=== PATIENT | female | born 1955 | race Caucasian/White ===

== ENCOUNTER 2024-06-06 11:12 | Inpatient (IN) | payer MEDICARE, SELFPAY ==
[2024-06-06] VITALS (13 sets, daily range): BP systolic 96–156; BP diastolic 61–93; PULSE 66–96; RESP 15–18; TEMP 36.4–36.9; O2SAT 90–98; BMI 22.4; BMI 23.3
[2024-06-06 12:45] LABS: Basophils # 0.1 10^3/uL (0.0-0.1); Basophils % 0.3 %; Eosinophils % 0.2 %; Hematocrit 46.6 % (36-47); Lymphocytes # 1.2 10^3/uL (0.8-4.8); Lymphocytes % 6.5 %; Mean Corpuscular Hemoglobin 30.7 pg (27-33); Mean Platelet Volume 10.6 fL (7.4-10.4); Monocytes # 1.5 10^3/uL (0.2-0.9); Neutrophils % 84.4 %; Nucleated Red Blood Cells % 0 %; Platelet Count 249 10^3/cmm (157-399); Red Blood Count 5.01 10^6/uL (3.85-5.65); Red Cell Distribution Width 12.2 % (12.1-15.1)
--- NOTE | 2024-06-06 12:45 | ED_ITS ---
HPI - Abdominal Pain 2 General: Chief Complaint: Abdominal Pain Stated Complaint: abd pain Time Seen by Provider: 06/06/24 12:35 History of Present Illness: Patient presents to the ER with migrating abdominal pain. It started in right lower quadrant and then proceeded to move into different quadrants. Patient is having some nausea vomiting but no diarrhea, no fever chills, patient still has her appendix. Patient was on the bed sleeping upon my arrival to the exam room. Patient is worried about her appendix. No known sick contacts. Patient does not have chronic abdominal pain. There is no problems with urinating or defecating. Related Data Allergies Allergy/AdvReac Type Severity Reaction Status Date / Time No Known Allergies Allergy Verified 06/06/24 11:44 Review of Systems 2 General: Reports: 10 or more systems reviewed and unremarkable except in HPI and below Physical Exam 2 Const: COMMON NORMALS: no acute distress, average body habitus, patient oriented x3, no limitations, healthy appearing, alert and well nourished HENMT: COMMON NORMALS: normocephalic, atraumatic, hearing grossly normal bilaterally, external ears normal, Normal external nose present and moist oral mucous membranes HEAD & SCALP: normocephalic and atraumatic NOSE: Normal external nose present EXTERNAL EAR: Yes external ears normal Neck/C-Spine: COMMON NORMALS: no JVD Chest: COMMONS NORMALS: normal inspection of the chest and normal palpation of entire chest wall Resp: COMMON NORMALS: normal respiratory effort, No retractions, No use of accessory muscles and clear to auscultation bilaterally AUSCULTATION: clear to auscultation bilaterally Cardio: COMMON NORMALS: no JVD, regular rate, regular rhythm, S1 normal heart sound present, S2 normal heart sound present, No gallops present (Cardio), No clicks present (Cardio), No murmurs present (Cardio) and No rub (Cardio) R ATE: regular rate RHYTHM: regular rhythm HEART SOUNDS: S1 normal heart sound present and S2 normal heart sound present GI: COMMON NORMALS: Normal to inspection, nondistended, normoactive bowel sounds present, Soft to palpation, non-tender, No hepatosplenomegaly present and no masses PALPATION: Yes Soft to palpation and Yes No hepatosplenomegaly present Neuro: COMMON NORMALS: patient oriented x3 SENSORIUM/ORIENTATION: Yes alert Course 2 Vital Signs: Vital signs: Vital Signs Temperature 97.6 F 06/06/24 11:40 Pulse Rate 76 06/06/24 11:40 Respiratory Rate 18 06/06/24 11:40 Blood Pressure 144/81 06/06/24 11:40 Pulse Oximetry 98 06/06/24 11:40 Oxygen Delivery Me thod Room Air 06/06/24 11:40 MDM - Abdominal Pain Medical Decision Making Patient is 18,000 white count and some hematuria otherwise lab work is unremarkable, abdomen x-ray is unremarkable, abdomen pelvis noncontrast CT renal stone protocol showed perforated appendix with early phlegmon changes, Dr. Chapin was consulted who agreed to come and see the patient take her to the OR. Medical Records I reviewed the patient's medical records. Lab Data I reviewed the patient's lab results. 06/06/24 12:34 06/06/24 12:34 Labs/Radiology: Radiology Impressions Abdomen X-Ray 06/06/24 12:45 IMPRESSION: No acute findings. Nonspecific. Abdomen/Pelvis CT 06/06/24 13:30 IMPRESSION: 1. The appendix is dilated measuring 1.6 centimeters, there is an appendicolith which measures a proximally 0.9 centimeters, there is a locule of extraluminal air and surrounding inflammatory changes, and early phlegmon changes in the right lower quadrant. Findings consistent with acute complicated perforated appendicitis. 2. Bilateral adnexal lesions with the right measuring 4.8 x 4.2 centimeters and the left measuring 6.8 x 4.1 centimeters. Consider nonemergent MRI of the pelvis with and without contrast for further evaluation THIS REPORT CONTAINS FINDINGS THAT MAY BE CRITICAL TO PATIENT CARE. The findings (impression findings) were verbally communicated via telephone conference with Ronna Baez at 2:36 PM [facility] on 06/06/2024. The findings were acknowledged and understood. Laboratory Results WBC 18.70 10^3/uL (3.29-11.43) H 06/06/24 12:34 RBC 5.01 10^6/uL (3.85-5.65) 06/06/24 12:34 Hgb 15.40 g/dL (11.27-16.99) 06/06/24 12:34 Hct 46.6 % (36-47) 06/06/24 12:34 MCV 93.0 fl (85-98) 06/06/24 12:34 MCH 30.7 pg (27-33) 06/06/24 12:34 MCHC 33.0 g/dL (30-55) 06/06/24 12:34 RDW 12.2 % (12.1-15.1) 06/06/24 12:34 Plt Count 249 10^3/cmm (157-399) 06/06/24 12:34 MPV 10.6 fL (7.4-10.4) H 06/06/24 12:34 Neut % (Auto) 84.4 % 06/06/24 12:34 Lymph % (Auto) 6.5 % 06/06/24 12:34 [place] % (Auto) 8.0 % 06/06/24 12:34 Eos % (Auto) 0.2 % 06/06/24 12:34 Baso % (Auto) 0.3 % 06/06/24 12:34 Neut # (Auto) 15.80 10^3/uL (1.8-7.7) H 06/06/24 12:34 Lymph # (Auto) 1.2 10^3/uL (0.8-4.8) 06/06/24 12:34 [place] # (Auto) 1.5 10^3/uL (0.2-0.9) H 06/06/24 12:34 Eos # (Auto) 0.0 10^3/uL (0.0-0.8) 06/06/24 12:34 Baso # (Auto) 0.1 10^3/uL (0.0-0.1) 06/06/24 12:34 Nucleated RBC % (auto) 0 % 06/06/24 12:34 Nucleated RBCs # 0.0 /100WBC 06/06/24 12:34 Sodium 136 mmol/L (136-145) 06/06/24 12:34 Potassium 4.0 mmol/L (3.5-5.1) 06/06/24 12:34 Chloride 98 mmol/L (98-107) 06/06/24 12:34 Carbon Dioxide 26 mmol/L (22-29) 06/06/24 12:34 Anion Gap 16.0 (5-19) 06/06/24 12:34 BUN 8 mg/dL (8-23) 06/06/24 12:34 Creatinine 0.6 mg/dL (0.5-0.9) 06/06/24 12:34 GFR Calculation 99.7 mL/min (90-130) 06/06/24 12:34 Glucose 136 mg/dL (65-115) H 06/06/24 12:34 Calculated Osmolality 282 mOsm/kg (285-295) L 06/06/24 12:34 Calcium 9.2 mg/dL (8.5-10.5) 06/06/24 12:34 Total Bilirubin 0.8 mg/dL (0.15-1.2) 06/06/24 12:34 AST 10 U/L (0-32) 06/06/24 12:34 ALT 9 U/L (0-33) 06/06/24 12:34 Alkaline Phosphatase 109 U/L (35-105) H 06/06/24 12:34 Total Protein 6.9 g/dL (6.6-8.7) 06/06/24 12:34 Albumin 4.5 g/dL (3.5-5.2) 06/06/24 12:34 Globulin 2.4 g/dL (1.3-4.6) 06/06/24 12:34 Lipase 11 U/L (13-60) L 06/06/24 12:34 Urine Color [place] (Yellow) A 06/06/24 12:48 Urine Appearance Clear (CLEAR) 06/06/24 12:48 Urine pH 6.5 (5-7) 06/06/24 12:48 Ur Specific [place] 1.021 (1.005-1.030) 06/06/24 12:48 Urine Protein Trace (Negative) A 06/06/24 12:48 Urine Glucose (UA) Negative (Normal) 06/06/24 12:48 Urine Ketones 2+ (Negative) H 06/06/24 12:48 Urine Blood Trace (Negative) A 06/06/24 12:48 Urine Nitrate Negative (Negative) 06/06/24 12:48 Urine Bilirubin Negative (Negative) 06/06/24 12:48 Urine Urobilinogen 1.0 mg/dL (Negative) 06/06/24 12:48 Ur Leukocyte Esterase Trace (Negative) A 06/06/24 12:48 Urine RBC 11-20 /hpf (0-2) H 06/06/24 12:48 Urine WBC 0-5 /hpf (0-5) 06/06/24 12:48 Ur Squamous Epith Cells 6-10 /hpf (0-5) 06/06/24 12:48 Amorphous Sediment Not Reportable 06/06/24 12:48 Urine Bacteria Trace /hpf (NONE) 06/06/24 12:48 Hyaline Casts 1.65 /lpf 06/06/24 12:48 All radiology interpretation(s) finalized by discharge Discharge Plan Discharge Clinical Impression: Rupture of appendix Condition: Stable Coding Level of Care Code ED Swimming Pool Plasterer Helper for Rodney Shah
--- NOTE | 2024-06-06 12:45 | XRR_ITS ---
PROCEDURE INFORMATION: Exam: XR Abdomen Exam date and time: 06/06/2024 12:51 PM Age: 68 years old Clinical indication: Abdominal pain; Patient HX: PT C/O rlq pain since yesterday, PT states pain is more generalized now. PT reports n/v, denies diarrhea. PT states she still has her appendix. ; Additional info: Abdominal pain, nausea vomiting TECHNIQUE: Imaging protocol: Radiologic exam of the abdomen. Views: Frontal supine view of the abdomen. 1 View. COMPARISON: No relevant prior studies available. FINDINGS: Gastrointestinal tract: Nonspecific bowel gas pattern. Possible constipation. . No bowel dilation. Bones/joints: Unremarkable. XR/XR abdomen 1V* [id number] IMPRESSION: No acute findings. Nonspecific.
[2024-06-06 12:55] LABS: Lipase 11 U/L (13-60)
[2024-06-06 12:56] LABS: Bilirubin Urine Negative (Negative); Blood Urine Trace (Negative); Glucose Urine UA Negative (Normal); Ketones Urine 2+ (Negative); Leukocyte Esterase Urine Trace (Negative); Nitrate Urine Negative (Negative); Protein Urine Trace (Negative); Specific Gravity, Urine 1.021 (1.005-1.030); Urine Appearance Clear (CLEAR); pH Urine 6.5 (5-7)
[2024-06-06 13:00] LABS: Alanine Aminotransferase 9 U/L (0-33); Albumin Level 4.5 g/dL (3.5-5.2); Alkaline Phosphatase 109 U/L (35-105); Aspartate Amino Transferase 10 U/L (0-32); Blood Urea Nitrogen 8 mg/dL (8-23); Calcium 9.2 mg/dL (8.5-10.5); Carbon Dioxide 26 mmol/L (22-29); Chloride 98 mmol/L (98-107); Creatinine Clr Calc Pharmacy 63.2285; Globulin 2.4 g/dL (1.3-4.6); Glomerular Filtration Rate 99.7 mL/min (90-130); Glucose 136 mg/dL (65-115); Osmolality Calculated 282 mOsm/kg (285-295); Sodium 136 mmol/L (136-145); Total Bilirubin 0.8 mg/dL (0.15-1.2); Total Protein 6.9 g/dL (6.6-8.7)
[2024-06-06 13:01] LABS: Add Urine Microscopic? YES; Bacteria Urine Trace /hpf; Hyaline Casts Urine 1.65 /lpf; WBC Urine 0-5 /hpf (0-5)
[2024-06-06 13:12] LABS: Urine Color Orange (Yellow)
--- NOTE | 2024-06-06 13:30 | CTR_ITS ---
PROCEDURE INFORMATION: Exam: CT Abdomen And Pelvis Without Contrast Exam date and time: 06/06/2024 1:35 PM Age: 68 years old Clinical indication: Nausea and vomiting; Abdominal pain; Localized; Right lower quadrant (rlq); Additional info: Hematuria, abdominal pain, nausea vomiting TECHNIQUE: Imaging protocol: Computed tomography of the abdomen and pelvis without contrast. Radiation optimization: All CT scans at this facility use at least one of these dose optimization techniques: automated exposure control; mA and/or kV adjustment per patient size (includes targeted exams where dose is matched to clinical indication); or iterative reconstruction. COMPARISON: CR (ABDOMEN, ) 06/06/2024 12:51 PM RADIATION DOSE METRICS: Total DLP (mGy-cm): 379.4 FINDINGS: Diaphragm: Large hiatal hernia. Liver: Normal. No mass. Gallbladder and biliary ducts: Normal. No calcified stones. No ductal dilation. Pancreas: Normal. No ductal dilation. Spleen: The spleen demonstrates punctate calcifications, consistent with remote granulomatous organism exposure. Adrenal glands: Left adrenal nodular thickening Kidneys and ureters: Normal. No hydronephrosis. Stomach and bowel: Unremarkable. No obstruction. No mucosal thickening. Appendix: The appendix is dilated measuring 1.6 centimeters, there is an appendicolith which measures 0.9 centimeters, there is a locule of extraluminal air, surrounding inflammatory changes, and early phlegmon changes in the right lower quadrant. Intraperitoneal space: No free air. Developing phlegmon changes in the right lower quadrant. Vasculature: Unremarkable. No abdominal aortic aneurysm. Lymph nodes: No retroperitoneal or pelvic lymphadenopathy Urinary bladder: Unremarkable as visualized. Reproductive: Bilateral adnexal lesions with the right measuring 4.8 x 4.2 centimeters in the left measuring 6.8 x 4.1 centimeters. Bones/joints: Chronic compression osseous deformity of the superior endplate of T12 vertebral body. Decreased bone mineralization. Soft tissues: Unremarkable. CT/CT kidney stone [id number] IMPRESSION: 1. The appendix is dilated measuring 1.6 centimeters, there is an appendicolith which measures a proximally 0.9 centimeters, there is a locule of extraluminal air and surrounding inflammatory changes, and early phlegmon changes in the right lower quadrant. Findings consistent with acute complicated perforated appendicitis. 2. Bilateral adnexal lesions with the right measuring 4.8 x 4.2 centimeters and the left measuring 6.8 x 4.1 centimeters. Consider nonemergent MRI of the pelvis with and without contrast for further evaluation THIS REPORT CONTAINS FINDINGS THAT MAY BE CRITICAL TO PATIENT CARE. The findings (impression findings) were verbally communicated via telephone conference with Ronna Baez at 2:36 PM CONTRACT TECHNICIAN on 06/06/2024. The findings were acknowledged and understood.
[2024-06-06] MEDS: ketorolac 60 mg/2 mL INJ IM (14:22)
[2024-06-06] MEDS: piperacillin-tazobactam 3.375 GM in sodium chloride 0.9% (plus) 50 ML IV ×2 (15:21→23:15)
--- NOTE | 2024-06-06 15:37 | P.ANESASSM_ITS ---
Pre-Anesthetic Assessment Height/Weight: Height 5 ft 5 in Weight 135 lb Temp Pulse Resp BP Pulse Ox O2 Del Method 97.6 F 76 18 144/81 98 Room Air 06/06/24 11:40 06/06/24 11:40 06/06/24 11:40 06/06/24 11:40 06/06/24 11:40 06/06/24 11:40 Preop Diagnosis: Acute appendicitis Operation Date: 06/06/24 16:10 Proposed Procedures p Laparoscopic Appendectomy(Not Applicable) - Parag Simpson MD Was Beta Elina taken within 24 hours: N/A Was Clonidine taken within 24 hours: N/A Last intake: Patient has been drinking water all day. Last food intake was last night Social Tobacco and No alcohol Exam alert, oriented x 3, clear to auscultation bilaterally and regular rate & rhythm Airway Submandibular: within normal limits Cervical ROM: within normal limits Mallampati: Class I Dentition: other Comments: Comments: Edentulous Anesthetic Plan ASA status: 3E Anesthesia: General Other: Only prior anesthetic was when she was 13 years old and broken leg. No reported issues with anesthesia Patient had dinner last night but no solid food since that time. Has been drinking water all day. Reportedly had water in the ER. Given concern for ruptured appendix, will proceed Current smoker, emphysema on inhalers Patient states that she does run a little high on blood pressure. Preop BP 144/81. No antihypertensives Labs reviewed. WBC 18.7 METs greater than 4 Plan for GETA with RSI Medications/Allergies Allergies Allergy/AdvReac Type Severity Reaction Status Date / Time No Known Allergies Allergy Verified 06/06/24 11:44 Data Anesthesia 06/06/24 12:34 06/06/24 12:34 Short CBC 06/06/24 Range/Units 12:34 WBC 18.70 H (3.29-11.43) 10^3/uL Hgb 15.40 (11.27-16.99) g/dL Hct 46.6 (36-47) % MCV 93.0 (85-98) fl Plt Count 249 (157-399) 10^3/cmm Neut % (Auto) 84.4 % Neut # (Auto) 15.80 H (1.8-7.7) 10^3/uL BMP 06/06/24 12:34 Sodium 136 Potassium 4.0 Chloride 98 Carbon Dioxide 26 BUN 8 Creatinine 0.6 Glucose 136 H Calcium 9.2 Liver Function 06/06/24 Range/Units 12:34 Total Bilirubin 0.8 (0.15-1.2) mg/dL AST 10 (0-32) U/L ALT 9 (0-33) U/L Alkaline Phosphatase 109 H (35-105) U/L Albumin 4.5 (3.5-5.2) g/dL Urine 06/06/24 Range/Units 12:48 Urine Color [place] A (Yellow) Urine Appearance Clear (CLEAR) Urine pH 6.5 (5-7) Ur Specific [place] 1.021 (1.005-1.030) Urine Protein Trace A (Negative) Urine Glucose (UA) Negative (Normal) Urine Ketones 2+ H (Negative) Urine Nitrate Negative (Negative) Urine Bilirubin Negative (Negative) Ur Leukocyte Esterase Trace A (Negative) Urine RBC 11-20 H (0-2) /hpf Urine WBC 0-5 (0-5) /hpf Cardiac Studies: 2 No Data to Display
--- NOTE | 2024-06-06 15:39 | P.HP_ITS ---
Providers/Chief Complaint 2 Admitting Physician: Parag Simpson MD Chief Complaint: abd pain History of Present Illness Humera Keys is a 68 year old female who presents to the hospital for evaluation of abdominal pain, she has been having abdominal pain since yesterday night, some nausea and vomit. Denies any other significant symptoms. White count was elevated to [address] scan show evidence of perforated acute appendicitis. Review of Systems 2 General: Reports: 10 or more systems reviewed and unremarkable except in HPI and below Medications/Allergies Allergies Allergy/AdvReac Type Severity Reaction Status Date / Time No Known Allergies Allergy Verified 06/06/24 11:44 Vitals/I&O/Wt Last Vital Signs Temp 97.6 F 06/06/24 11:40 Pulse 76 06/06/24 11:40 Resp 18 06/06/24 11:40 BP 144/81 06/06/24 11:40 Pulse Ox 98 06/06/24 11:40 O2 Del Method Room Air 06/06/24 11:40 Weight last 48 hrs Weight 135 lb Physical Exam 2 GI: OTHER: Abdomen is soft, there is tenderness to the right lower quadrant with localized peritonitis at this level Data 06/06/24 12:34 06/06/24 12:34 A&P Assessment and plan (1) Acute appendicitis with peritonitis: (2) Rupture of appendix: Plan After complete history physical examination and review of all available clinical data the following is my assessment. Patient presents with rupture acute appendicitis with localized peritonitis, at this close the need for laparoscopic possible open appendectomy. After discussion of all risk and benefits as documented in my preop note patient has decided to proceed. I discussed the risks of bleeding, infection, abscess formation, injury to surrounding structures including blood vessels, colon, intestine, ureter, I have also explained that every surgery carries a small percentage of risk of . Patient shows understanding agrees to proceed. Attestations 2 Medical Necessity Statement*: Patient will require 3 to 5 days of hospital stay for antibiotic management after perforated acute appendicitis with peritonitis Coding Level of Care Code Acute Code for [facility] Diagnoses Acute appendicitis with peritonitis K35.33 Rupture of appendix K35.32
[2024-06-06] MEDS: lidocaine-epi 1% 20 mL INJ INJECTION (16:04)
[2024-06-06] MEDS: BUPivacaine 0.25% INJ 10 mL INJECTION (16:05)
--- NOTE | 2024-06-06 17:34 | P.OP_ITS ---
Operative Report Date of procedure: June 06, 2024 Pre-op diagnosis: Perforated acute appendicitis Post-op diagnosis: Same Post-op findings: There was significant adhesions of the omentum to the anterior abdominal wall starting in the infraumbilical location extending all the way down to the suprapubic region. The appendix was located in the right lower quadrant there was an early phlegmon formation with anterior abdominal wall and part of the omentum that was adhesed to the anterior abdominal wall. The perforation appeared to be contained in the mesoappendix. There was some purulent fluid in the periappendiceal bed Procedure done: Laparoscopic appendectomy, extensive lysis of additions Specimens removed/disposition: Appendix Surgeon: Parag Simpson MD Interlocking Tower Operator: AZAEL OR STaff Estimated blood loss: 10 Complications: none apparent Brief History: This is a 68-year-old female who presents to the hospital with abdominal pain, white count was [address] scan showed evidence of acute appendicitis with perforation. After discussion of all risks and benefits as documented in my preop note we decided to proceed to the OR for laparoscopic appendectomy. Procedure: Patient was brought into the OR, she was placed in the supine position. General anesthesia was given. The abdomen was prepped and draped in the usual sterile fashion. The abdomen was accessed via infraumbilical incision with an open technique, a 12 mm Thompson trocar was placed and fixed to the fascia with #0 Vicryl. Initial pneumoperitoneum was obtained and no evidence of visceral injury during entry was noted. Additional 5 mm trocars were placed in the left lower quadrant position and due to adhesions in the infraumbilical midline I decided to pull the second trocar in the right flank. Significant adhesions of the omentum to the anterior abdominal wall were noted starting in the infraumbilical location standing all the way down to the pelvis. This adhesions prevented visualization of the appendix and the cecum. I therefore decided to proceed with lysis of additions, approximately 45 minutes were needed to lyse adhesions from the omentum to the anterior abdominal wall and from what appeared to be the sigmoid colon to the anterior abdominal wall, once I was able to properly visualize the appendix I decided to not continue to additional adhesiolysis deeper in the pelvis as this could result in injury of the adjacent structures. Once the appendix was visualized in the right lower quadrant I then placed an extra 5 mm trocar in the left upper quadrant to allow me for better exposure and dissection of the appendix, I was able to dissect the appendix from the surrounding tissues using blunt dissection, a small amount of periappendiceal purulent fluid was noted, no overt stool contamination in the abdomen was appreciated at that time. I then took down the mesoappendix from the tip of the appendix to the base of the appendix using LigaSure, while doing this it was apparent that the perforation has been contained in the mesoappendix. No significant contamination was noted, the base of the appendix appeared to be healthy. I then proceeded to transect the appendix at the base using a 45 mm blue load Endo TERRANCE stapler. The appendix was retrieved via the umbilical trocar site in an Endo Catch bag. The staple line appeared healthy and hemostatic. I then proceeded to irrigate the periappendiceal bed and pelvis with about 1 L of saline. A 19 Sinhala drain was then placed in the pelvis and periappendiceal bed and delivered through the right flank trocar. The drain was fixed with #2-0 nylon. I then proceeded to close the umbilical trocar site using a Ivan-Marta suture passer under direct visualization with a 0 Vicryl. The left lower quadrant trocar was removed under direct visualization the left upper quadrant trocar was used to evacuate the pneumoperitoneum and subsequently removed. Local anesthesia was infiltrated in all the wounds, the wounds were closed in layers using #4 Monocryl for the skin and Dermabond was applied. At the end of the procedure all counts were correct, the patient tolerated well the procedure and was transferred to the PACU in stable condition.
[2024-06-06] MEDS: sodium chloride 0.9% 1,000 ML 75 ML IV (20:14)
--- NOTE | 2024-06-06 21:33 | PC.NURSE ---
Received report from PEG Winkler at 2000.
[2024-06-06] MEDS: HYDROmorphone 1 mg/mL INJ 1 mL 0.5 MG IVP (23:15)
[2024-06-07] VITALS (8 sets, daily range): BP systolic 96–114; BP diastolic 60–85; PULSE 62–82; RESP 16–18; TEMP 36.4–36.8; O2SAT 87–94
[2024-06-07 03:34] LABS: Basophils % 0.2 %; Hematocrit 40.5 % (36-47); Lymphocytes # 0.9 10^3/uL (0.8-4.8); Mean Corpuscular HGB Conc 32.1 g/dL (30-55); Mean Corpuscular Hemoglobin 30.6 pg (27-33); Mean Corpuscular Volume 95.3 fl (85-98); Mean Platelet Volume 10.8 fL (7.4-10.4); Monocytes # 0.7 10^3/uL (0.2-0.9); Monocytes % 3.8 %; Neutrophils # 16.26 10^3/uL (1.8-7.7); Neutrophils % 90.2 %; Nucleated Red Blood Cells % 0 %; Platelet Count 204 10^3/cmm (157-399); Red Blood Count 4.25 10^6/uL (3.85-5.65); Red Cell Distribution Width 12.4 % (12.1-15.1); White Blood Count 18.04 10^3/uL (3.29-11.43)
[2024-06-07 03:53] LABS: Anion Gap 14.5 (5-19); Blood Urea Nitrogen 15 mg/dL (8-23); Carbon Dioxide 24 mmol/L (22-29); Chloride 105 mmol/L (98-107); Creatinine Clr Calc Pharmacy 64.1864; Glomerular Filtration Rate 71.5 mL/min (90-130); Glucose 148 mg/dL (65-115); Osmolality Calculated 292 mOsm/kg (285-295); Potassium 4.5 mmol/L (3.5-5.1); Sodium 139 mmol/L (136-145)
[2024-06-07] MEDS: HYDROmorphone 1 mg/mL INJ 1 mL 0.5 MG IVP ×2 (05:51→14:54)
[2024-06-07] MEDS: ketorolac 30 mg/mL INJ 15 MG IVP ×3 (05:51→17:33)
[2024-06-07] MEDS: acetaminophen 325 mg Tablet 650 MG PO ×3 (08:16→17:34)
[2024-06-07] MEDS: piperacillin-tazobactam 3.375 GM in sodium chloride 0.9% (plus) 50 ML IV ×2 (08:32→16:28)
[2024-06-07] MEDS: sodium chloride 0.9% 1,000 ML 75 ML IV (09:54)
--- NOTE | 2024-06-07 09:54 | P.PN_ITS ---
Subjective 2 Subjective: Postoperative day 1 status post laparoscopic appendectomy for perforated acute appendicitis. Patient is doing okay no significant abdominal pain other than with movement which is expected after discussion of surgery. Tolerating liquid diet. Vital signs have been stable. Vitals/I&O/Wt Last Vital Signs Temp 98.1 F 06/07/24 08:02 Pulse 79 06/07/24 08:02 Resp 16 06/07/24 08:02 BP 111/64 06/07/24 08:02 Pulse Ox 91 06/07/24 08:02 O2 Del Method Nasal Cannula 06/07/24 08:02 O2 Flow Rate 2 06/07/24 04:00 06/06/24 06/07/24 06/07/24 22:59 06:59 14:59 Intake Total 50 / 50 110 / 160 1240 / 1240 Output Total 10 / 10 50 / 60 Balance 40 / 40 60 / 100 1240 / 1240 Weight last 48 hrs Weight 143 lb Weight 139 lb 14.4 oz Weight 135 lb Physical Exam 2 GI: OTHER: Abdominal examination is benign abdomen is soft is appropriately tender to palpation the LUCIANA drain is in place with serosanguineous output. Data 06/07/24 02:58 06/07/24 02:58 A&P Assessment and plan (1) Rupture of appendix: (2) Acute appendicitis with peritonitis: Plan Patient showing very good progression after laparoscopic appendectomy for perforated acute appendicitis. Vital signs and clinical status have significantly improved but the white count still elevated we will continue to monitor over the next 24 to 48 hours, patient will require 3 to 5 days of hospital stay for IV antibiotics due to the perforation and then we will plan on transition to the outpatient setting. Attestations 2 Medical Necessity Statement*: Patient required 2-3 more days of hospital stay for antibiotic management. Coding Level of Care Code Acute Code for [facility] Diagnoses Rupture of appendix K35.32 Acute appendicitis with peritonitis K35.33
[2024-06-08] VITALS (7 sets, daily range): BP systolic 130–156; BP diastolic 73–99; PULSE 62–80; RESP 16–18; TEMP 36.5–36.8; O2SAT 90–93
[2024-06-08] MEDS: ketorolac 30 mg/mL INJ 15 MG IVP ×4 (00:04→16:59)
[2024-06-08] MEDS: acetaminophen 325 mg Tablet 650 MG PO ×4 (00:05→17:00)
[2024-06-08] MEDS: piperacillin-tazobactam 3.375 GM in sodium chloride 0.9% (plus) 50 ML IV ×4 (00:05→23:50)
[2024-06-08 03:56] LABS: Basophils % 0.3 %; Eosinophils # 0.1 10^3/uL (0.0-0.8); Eosinophils % 1.1 %; Hematocrit 35.3 % (36-47); Lymphocytes # 2.3 10^3/uL (0.8-4.8); Mean Corpuscular Hemoglobin 30.8 pg (27-33); Mean Corpuscular Volume 96.2 fl (85-98); Mean Platelet Volume 11.2 fL (7.4-10.4); Monocytes % 8.8 %; Neutrophils # 8.05 10^3/uL (1.8-7.7); Neutrophils % 69.2 %; Nucleated Red Blood Cells % 0 %; Platelet Count 168 10^3/cmm (157-399); Red Blood Count 3.67 10^6/uL (3.85-5.65); Red Cell Distribution Width 12.8 % (12.1-15.1); White Blood Count 11.63 10^3/uL (3.29-11.43)
[2024-06-08 04:16] LABS: Anion Gap 13.4 (5-19); Blood Urea Nitrogen 12 mg/dL (8-23); Calcium 8.1 mg/dL (8.5-10.5); Carbon Dioxide 23 mmol/L (22-29); Chloride 107 mmol/L (98-107); Creatinine Clr Calc Pharmacy 64.7724; Glomerular Filtration Rate 99.7 mL/min (90-130); Glucose 97 mg/dL (65-115); Osmolality Calculated 290 mOsm/kg (285-295); Potassium 3.4 mmol/L (3.5-5.1); Sodium 140 mmol/L (136-145)
--- NOTE | 2024-06-08 07:13 | P.PN_ITS ---
Subjective 2 Subjective: Patient is postoperative day 2 status post laparoscopic appendectomy for perforated acute appendicitis. Patient is doing okay currently abdominal pain is controlled. Has been passing gas but has not had a bowel movement yet. No fever chills Vitals/I&O/Wt Last Vital Signs Temp 97.9 F 06/08/24 03:30 Pulse 73 06/08/24 03:30 Resp 17 06/08/24 03:30 BP 130/73 06/08/24 03:30 Pulse Ox 92 06/08/24 03:30 O2 Del Method Nasal Cannula 06/08/24 03:30 O2 Flow Rate 2 06/08/24 03:30 06/07/24 06/08/24 06/08/24 22:59 06:59 14:59 Intake Total 1290 / 3060 50 / 3110 Output Total 20 / 40 Balance 1270 / 3020 50 / 3070 Weight last 48 hrs Weight 142 lb 14.4 oz Weight 143 lb Weight 139 lb 14.4 oz Weight 135 lb Physical Exam 2 GI: OTHER: Abdomen is soft, appropriately tender, surgical incisions are covered with dressing, LUCIANA drain with serosanguineous output. Data 06/08/24 03:00 06/08/24 03:00 A&P Assessment and plan (1) Rupture of appendix: Plan Patient is doing well after laparoscopic appendectomy for perforated acute appendicitis. White count has trended down to 11.6 today. The plan is to transition to the outpatient setting in the next 48 hours. We will discontinue the drain previous to discharge. Patient will be advanced to regular diet today and I will add some medication for stool softeners. Attestations 2 Medical Necessity Statement*: Patient will require 48 hours of hospital stay for IV antibiotics. Coding Level of Care Code Acute Code for [facility] Diagnoses Rupture of appendix K35.32
[2024-06-08] MEDS: polyethylene glycol 3350 Pkt 17 gm PO ×2 (08:21→17:00)
--- NOTE | 2024-06-08 10:04 | PC.SOCIAL ---
IMM Update pg 2 of IMM updated and reviewed w/ patient. Patient signed. Copy provided and copy dated, initialed and placed in chart.
--- NOTE | 2024-06-08 10:17 | PC.CHAP ---
Pastoral Care Encounter/Spiritual Assessment Type of Contact [] Declined drywall hanger visit [] Patient/Family/Request visit [] Outpatient visit [] Follow-up visit [] Physician referral [] Code/Alert [x] Routine visit [] Staff referral [] Actively dying [] Patient sleeping [] Family support [] [] Out of room [] Palliative care [] [] Receiving care in room [] Pre-surgical visit [] Trauma [] Long length of stay [] ICU visit [] Other: Relational/Emotional Strength [] Patient feels connected with others/family/visitors/staff [] Distress [] Loneliness/isolation [] Abandonment Spirituality of Patient [x] Person of Carolyn [] Attends Temple of their Carolyn [x] Believes in Prayer [] Reads Bible or Yarsani materials [] There are Spiritual issues to be addressed [employer] Interventions [x] Prayer [x] Active listening [] Non-anxious presence [] Spiritual/emotional support [] Crisis/trauma care [] Spiritual counseling [] Bereavement support [] Provided bereavement packet [x] Provided Bible/devotional materials [] Provided toy/stuffed animal, coloring book to patient or family member [] Provided Communion [] Anointing/[place] [] Salvation [x] Completed spiritual assessment [] Other: Impact on Illness or Injury [] Angry [] Fearful [] Anxious [] Often cries [] Exhaustion [] Unable to work [] Unable to attend advent [] Unable to walk/stand [] Unable to read [] Unable to drive [] Unable to eat/drink [] Unable to sleep [] Unable to be with family [] Patient intubated [] Other: Summary Time spent with patient 5 min
[2024-06-08] MEDS: HYDROmorphone 1 mg/mL INJ 1 mL 0.5 MG IVP (22:52)
[2024-06-09] VITALS: BP 142/89; PULSE 56; RESP 18; TEMP 36.4; O2SAT 95
[2024-06-09 04:00] VITALS: BP 130/78; PULSE 63; RESP 17; TEMP 36.6; O2SAT 92
[2024-06-09 05:40] LABS: Basophils # 0.1 10^3/uL (0.0-0.1); Basophils % 0.7 %; Eosinophils # 0.3 10^3/uL (0.0-0.8); Eosinophils % 3.8 %; Hematocrit 37.6 % (36-47); Lymphocytes % 28.5 %; Mean Corpuscular Hemoglobin 31.1 pg (27-33); Mean Corpuscular Volume 94.2 fl (85-98); Mean Platelet Volume 10.7 fL (7.4-10.4); Monocytes # 0.7 10^3/uL (0.2-0.9); Monocytes % 9.8 %; Neutrophils # 3.99 10^3/uL (1.8-7.7); Neutrophils % 56.9 %; Nucleated Red Blood Cells % 0 %; Platelet Count 217 10^3/cmm (157-399); Red Blood Count 3.99 10^6/uL (3.85-5.65); Red Cell Distribution Width 12.4 % (12.1-15.1); White Blood Count 7.02 10^3/uL (3.29-11.43)
[2024-06-09] MEDS: acetaminophen 325 mg Tablet 650 MG PO ×2 (06:04→17:55)
[2024-06-09 06:15] LABS: Anion Gap 14.6 (5-19); Blood Urea Nitrogen 9 mg/dL (8-23); Calcium 8.3 mg/dL (8.5-10.5); Carbon Dioxide 25 mmol/L (22-29); Chloride 104 mmol/L (98-107); Creatinine Clr Calc Pharmacy 64.3622; Glomerular Filtration Rate 99.7 mL/min (90-130); Glucose 128 mg/dL (65-115); Osmolality Calculated 290 mOsm/kg (285-295); Potassium 3.6 mmol/L (3.5-5.1); Sodium 140 mmol/L (136-145)
[2024-06-09] MEDS: piperacillin-tazobactam 3.375 GM in sodium chloride 0.9% (plus) 50 ML IV ×2 (08:10→16:49)
[2024-06-09 08:20] VITALS: BP 169/95; PULSE 75; RESP 17; TEMP 36.3; O2SAT 94
--- NOTE | 2024-06-09 10:38 | P.PN_ITS ---
Subjective 2 Subjective: Excellent progression after laparoscopic appendectomy for perforated acute appendicitis. Passing gas and bowel movements and ambulating. Vitals/I&O/Wt Last Vital Signs Temp 97.4 F L 06/09/24 08:20 Pulse 75 06/09/24 08:20 Resp 17 06/09/24 08:20 BP 169/95 06/09/24 08:20 Pulse Ox 94 06/09/24 08:20 O2 Del Method Room Air 06/09/24 08:20 O2 Flow Rate 2 06/09/24 04:00 06/08/24 06/09/24 06/09/24 22:59 06:59 14:59 Intake Total 290 / 820 770 / 1590 240 / 240 Output Total 80 / 80 70 / 70 Balance 210 / 740 770 / 1510 170 / 170 Weight last 48 hrs Weight 140 lb 12.8 oz Weight 142 lb 14.4 oz Physical Exam 2 GI: OTHER: Abdomen is soft, minimally tender to palpation, LUCIANA drain with serous output, this was removed today. Data 06/09/24 05:18 06/09/24 05:18 A&P Assessment and plan (1) Rupture of appendix: (2) Acute appendicitis with peritonitis: Plan Patient showing an excellent progression, clinical picture is significantly improved. Denies abdominal pain, drain was removed today. White count has normalized. We will give 24 more hours of IV antibiotics to complete 3 full days and after that patient will be transition to the outpatient setting with p.o. antibiotics. Attestations 2 Medical Necessity Statement*: Plan on discharge tomorrow. Coding Level of Care Code Acute Code for [facility] Diagnoses Rupture of appendix K35.32 Acute appendicitis with peritonitis K35.33
[2024-06-09] MEDS: ketorolac 30 mg/mL INJ 15 MG IVP (12:07)
[2024-06-09 12:17] VITALS: BP 179/81; PULSE 67; RESP 16; TEMP 36.3; O2SAT 95
[2024-06-09 15:38] VITALS: BP 152/94; PULSE 60; RESP 17; TEMP 36.3; O2SAT 93
[2024-06-09 20:00] VITALS: BP 153/87; PULSE 60; RESP 18; TEMP 37.3; O2SAT 92
[2024-06-10] VITALS: BP 172/89; PULSE 66; RESP 18; TEMP 36.6; O2SAT 93
[2024-06-10] MEDS: piperacillin-tazobactam 3.375 GM in sodium chloride 0.9% (plus) 50 ML IV (00:17)
[2024-06-10 04:00] VITALS: BP 153/93; PULSE 72; RESP 17; TEMP 36.9; O2SAT 92
[2024-06-10 07:30] VITALS: BP 200/83; PULSE 70; RESP 16; TEMP 36.7; O2SAT 94
--- NOTE | 2024-06-10 07:37 | PC.NURSE ---
Dr. Simpson in room when taking patients blood pressure which was 200/83. Dr. Simpson ask patient if blood pressure was needed and patient refused any medication for blood pressure. Patient had a touch of depression this am from news of a friend passing away and states she will be fine.
--- NOTE | 2024-06-10 08:01 | PM.DCS ---
Discharge Providers Date of Admission: 06/06/24 18:28 Date of Discharge: June 10, 2024 Attending Provider at Admission: Parag Simpson MD Attending Provider at Discharge: Parag Simpson MD Diagnoses at Discharge Discharge Diagnosis (1) Rupture of appendix: Status: Acute (2) Acute appendicitis with peritonitis: Status: Acute Reason for Visit Reason for Visit: abd pain Brief History: This a 68-year-old female who presented to the hospital with perforated acute appendicitis, she was taken to the OR for laparoscopic appendectomy that was done without complications. White count normalized in the postoperative., She stayed in the hospital 3 full days for IV antibiotics due to history of perforation. On the day of discharge abdominal exam was benign abdomen is soft nontender nondistended. Patient is in good spirits. Her BP was noted to be elevated but patient refused treatment at this time and she will follow-up with primary care. Physical Exam GI: OTHER: Abdomen is soft nontender nondistended surgical incisions covered with Dermabond. Discharge Data Studies Completed and Pending Completed Studies During Hospitalization Category Date Time Status CT abdomen renal stone [CT kidney stone [id number]] Stat Cat Scan 06/06/24 13:30 Completed XR abdomen 1V* [id number] Stat Exams 06/06/24 12:45 Completed Pending at discharge Category Date Time Status Pathology: Surgical [PTH] Routine Pth 06/06/24 17:10 Received Radiology Impressions Abdomen X-Ray 06/06/24 12:45 IMPRESSION: No acute findings. Nonspecific. Abdomen/Pelvis CT 06/06/24 13:30 IMPRESSION: 1. The appendix is dilated measuring 1.6 centimeters, there is an appendicolith which measures a proximally 0.9 centimeters, there is a locule of extraluminal air and surrounding inflammatory changes, and early phlegmon changes in the right lower quadrant. Findings consistent with acute complicated perforated appendicitis. 2. Bilateral adnexal lesions with the right measuring 4.8 x 4.2 centimeters and the left measuring 6.8 x 4.1 centimeters. Consider nonemergent MRI of the pelvis with and without contrast for further evaluation THIS REPORT CONTAINS FINDINGS THAT MAY BE CRITICAL TO PATIENT CARE. The findings (impression findings) were verbally communicated via telephone conference with Ronna Baez at 2:36 PM [employer] on 06/06/2024. The findings were acknowledged and understood. Laboratory Results WBC 7.02 10^3/uL (3.29-11.43) 06/09/24 05:18 RBC 3.99 10^6/uL (3.85-5.65) 06/09/24 05:18 Hgb 12.40 g/dL (11.27-16.99) 06/09/24 05:18 Hct 37.6 % (36-47) 06/09/24 05:18 MCV 94.2 fl (85-98) 06/09/24 05:18 MCH 31.1 pg (27-33) 06/09/24 05:18 MCHC 33.0 g/dL (30-55) 06/09/24 05:18 RDW 12.4 % (12.1-15.1) 06/09/24 05:18 Plt Count 217 10^3/cmm (157-399) 06/09/24 05:18 MPV 10.7 fL (7.4-10.4) H 06/09/24 05:18 Neut % (Auto) 56.9 % 06/09/24 05:18 Lymph % (Auto) 28.5 % 06/09/24 05:18 Scott % (Auto) 9.8 % 06/09/24 05:18 Eos % (Auto) 3.8 % 06/09/24 05:18 Baso % (Auto) 0.7 % 06/09/24 05:18 Neut # (Auto) 3.99 10^3/uL (1.8-7.7) 06/09/24 05:18 Lymph # (Auto) 2.0 10^3/uL (0.8-4.8) 06/09/24 05:18 Scott # (Auto) 0.7 10^3/uL (0.2-0.9) 06/09/24 05:18 Eos # (Auto) 0.3 10^3/uL (0.0-0.8) 06/09/24 05:18 Baso # (Auto) 0.1 10^3/uL (0.0-0.1) 06/09/24 05:18 Nucleated RBC % (auto) 0 % 06/09/24 05:18 Nucleated RBCs # 0.0 /100WBC 06/09/24 05:18 Sodium 140 mmol/L (136-145) 06/09/24 05:18 Potassium 3.6 mmol/L (3.5-5.1) 06/09/24 05:18 Chloride 104 mmol/L (98-107) 06/09/24 05:18 Carbon Dioxide 25 mmol/L (22-29) 06/09/24 05:18 Anion Gap 14.6 (5-19) 06/09/24 05:18 BUN 9 mg/dL (8-23) 06/09/24 05:18 Creatinine 0.6 mg/dL (0.5-0.9) 06/09/24 05:18 GFR Calculation 99.7 mL/min (90-130) 06/09/24 05:18 Glucose 128 mg/dL (65-115) H 06/09/24 05:18 Calculated Osmolality 290 mOsm/kg (285-295) 06/09/24 05:18 Calcium 8.3 mg/dL (8.5-10.5) L 06/09/24 05:18 Total Bilirubin 0.8 mg/dL (0.15-1.2) 06/06/24 12:34 AST 10 U/L (0-32) 06/06/24 12:34 ALT 9 U/L (0-33) 06/06/24 12:34 Alkaline Phosphatase 109 U/L (35-105) H 06/06/24 12:34 Total Protein 6.9 g/dL (6.6-8.7) 06/06/24 12:34 Albumin 4.5 g/dL (3.5-5.2) 06/06/24 12:34 Globulin 2.4 g/dL (1.3-4.6) 06/06/24 12:34 Lipase 11 U/L (13-60) L 06/06/24 12:34 Urine Color [place] (Yellow) A 06/06/24 12:48 Urine Appearance Clear (CLEAR) 06/06/24 12:48 Urine pH 6.5 (5-7) 06/06/24 12:48 Ur Specific [place] 1.021 (1.005-1.030) 06/06/24 12:48 Urine Protein Trace (Negative) A 06/06/24 12:48 Urine Glucose (UA) Negative (Normal) 06/06/24 12:48 Urine Ketones 2+ (Negative) H 06/06/24 12:48 Urine Blood Trace (Negative) A 06/06/24 12:48 Urine Nitrate Negative (Negative) 06/06/24 12:48 Urine Bilirubin Negative (Negative) 06/06/24 12:48 Urine Urobilinogen 1.0 mg/dL (Negative) 06/06/24 12:48 Ur Leukocyte Esterase Trace (Negative) A 06/06/24 12:48 Urine RBC 11-20 /hpf (0-2) H 06/06/24 12:48 Urine WBC 0-5 /hpf (0-5) 06/06/24 12:48 Ur Squamous Epith Cells 6-10 /hpf (0-5) 06/06/24 12:48 Amorphous Sediment Not Reportable 06/06/24 12:48 Urine Bacteria Trace /hpf (NONE) 06/06/24 12:48 Hyaline Casts 1.65 /lpf 06/06/24 12:48 Vitals Last Vital Signs Temp 98.0 F 06/10/24 07:30 Pulse 70 06/10/24 07:30 Resp 16 06/10/24 07:30 BP 200/83 06/10/24 07:30 Pulse Ox 94 06/10/24 07:30 O2 Del Method Room Air 06/10/24 07:30 O2 Flow Rate 2 06/10/24 04:00 Discharge Plan Discharge Patient Disposition: Home Condition: Stable Prescriptions: New oxycodone 5 mg tablet 5 mg PO Q8H PRN (Reason: pain) 5 Days Qty: 14 0RF meloxicam 7.5 mg tablet 7.5 mg PO DAILY 7 Days Qty: 7 0RF amoxicillin-pot clavulanate 875-125 mg tablet 1 tab PO BID 7 Days Qty: 14 0RF polyethylene glycol 3350 [Miralax] 17 gram powder in packet 17 g PO BID Qty: 14 0RF Continued diphenhydramine HCl [Benadryl Allergy] 25 mg Tablet 50 mg PO TID PRN (Reason: allergies) phenylephrine HCl [Sudafed PE] 10 mg Tablet 10 mg PO QID PRN (Reason: Congestion) Hair, Skin and Nails (biotin) 10,000 mcg Tablet,Chewable 10,000 mcg PO DAILY Discontinued naproxen sodium [Aleve] 220 mg Tablet 220 mg PO BID PRN (Reason: Pain) ibuprofen [Advil] 200 mg Tablet 400 mg PO Q6H PRN (Reason: Pain) Discharge Orders: Discharge Order (Routine); Ordered 06/10/24 Ordered By: Parag Simpson Referrals: Parag Simpson MD [Physician] - (We have notified your physician's clinic of the need for a follow-up appointment to be scheduled. If you have not heard from them within the next 2 business days, please call them directly. 2 weeks f/u) Discharge Diet: Advance as tolerated Discharge Activity: Limit activity as instructed Patient Instructions: Opioid Safety Activity Restrictions/Additional Instructions: No heavy lifting for 6 weeks, walk is much as possible this will speed up your recovery. Return to the hospital you have severe abdominal pain that is getting worse over time fever or chills. Make sure to take your medication as instructed if you take oxycodone you need to take the MiraLAX otherwise she will get constipated. Discharge Attestations Time Spent in Discharge Care*: less than 30 min Quality Metrics Clinical Quality Measures [ No reported AMI, CVA or VTE this stay] Coding Level of Care Code Acute Code for [facility] Diagnoses Rupture of appendix K35.32 Acute appendicitis with peritonitis K35.33
[2024-06-10] MEDS: amoxicillin-clav 875-125 mg Tablet 1 TAB PO (09:01)
--- NOTE | 2024-06-10 09:56 | PC.SOCIAL ---
IMM Update pg 2 of IMM Updated and reviewed w/ patient. Copy provided and copy dated, initialed and placed in chart.
--- NOTE | 2024-06-10 10:06 | PC.NURSE ---
Discussed discharge with patient and family. Went over new medications, continued and discontinued medications. Instructed for patient to call office for follow up appointment if office has not called by Saturday. Patients medication to inhouse pharmacy. Patient verbalized understanding.
--- NOTE | 2024-06-10 10:10 | PC.NURSE ---
Patient refused to allow facility to take blood pressure before discharge
== END 2024-06-10 09:55 | disposition home or self-care (01) | DRG 337 ==
LOC: ER 14:56 → OR 15:21 → MEDSURG 06-07 08:43
PROVIDERS: Admitting Provider Surgery; Emergency Provider Emergency Medicine; Visit Provider Surgery
PROC: 0DTJ4ZZ Resection of Appendix, Percutaneous Endoscopic Approach (ICD-10-PCS; CPT 44970; principal; 2024-06-06 16:00)
DX: K35.33 Acute appendicitis with perforation, localized peritonitis, and gangrene, with abscess (principal)
CPT/HCPCS: 36415; 74018; 74176; 80048; 80053; 81001; 83690; 85025; 88304; 96365; 96372; 99285; J0131; J1171; J1885; J2250; J2543; J2704; J2710; J3010; J3490; J7030

== ENCOUNTER → 2024-06-17 14:02 | Outpatient (BNVA) | payer MEDICARE, SELFPAY | PROVIDERS: Visit Provider Surgery | DX: Z98.890 Other specified postprocedural states (principal); Z90.49 Acquired absence of other specified parts of digestive tract | CPT/HCPCS: 99024 ==